=== PATIENT | female | born 1960 | race Caucasian/White ===

== ENCOUNTER 2017-06-19 21:51 | Emergency (ER) | payer MEDICARE ==
[~2017-06-19] VITALS: Ht 165.1 cm; Wt 84.4 kg
[2017-06-19 21:52] VITALS: BP 107/70
== END 2017-06-20 00:05 | disposition home or self-care (01) ==
LOC: ED 23:30
DX: R60.0 Localized edema (principal); E11.9 Type 2 diabetes mellitus without complications; M54.9 Dorsalgia, unspecified; G89.29 Other chronic pain; Z86.73 Personal history of transient ischemic attack (TIA), and cerebral infarction without residual deficits; Z90.710 Acquired absence of both cervix and uterus; J44.9 Chronic obstructive pulmonary disease, unspecified
CPT/HCPCS: 99284

== ENCOUNTER → 2018-02-01 | Outpatient (CLI) | payer MEDICARE | END | disposition home or self-care (01) | LOC: CFH 10:18 | PROVIDERS: ATTEND Physical Medicine & Rehabilitation | DX: M25.512 Pain in left shoulder (principal) ==

== ENCOUNTER 2018-05-27 16:43 | Emergency (ER) | payer MEDICARE ==
[~2018-05-27] VITALS: Ht 162.6 cm; Wt 85.9 kg
[2018-05-27 16:47] VITALS: BP 118/80
[2018-05-27] MEDS ORDERED: INSU100V8 SQ ×2 (16:54)
[2018-05-27] MEDS ORDERED: FLUT1DIS IH (16:54)
[2018-05-27] MEDS ORDERED: JANUMET PO (16:54)
[2018-05-27] MEDS ORDERED: ALPR-475 PO (16:54)
[2018-05-27] MEDS ORDERED: OXYC-302 PO (16:54)
== END 2018-05-27 19:56 | disposition home or self-care (01) ==
LOC: ED 17:04
DX: S63.522A Sprain of radiocarpal joint of left wrist, initial encounter (principal); S63.521A Sprain of radiocarpal joint of right wrist, initial encounter; J44.9 Chronic obstructive pulmonary disease, unspecified; E11.9 Type 2 diabetes mellitus without complications; Z86.73 Personal history of transient ischemic attack (TIA), and cerebral infarction without residual deficits; Z90.710 Acquired absence of both cervix and uterus; W01.0XXA Fall on same level from slipping, tripping and stumbling without subsequent striking against object, initial encounter; Y93.01 Activity, walking, marching and hiking; Y99.8 Other external cause status; Y92.830 Public park as the place of occurrence of the external cause
CPT/HCPCS: 29125; 99284